=== PATIENT | female | born 1960 | race Two or more races ===

== ENCOUNTER 2019-11-11 12:42 | Inpatient (IN) | payer BC, OTHER ==
[~2019-11-11] VITALS: Ht 152.4 cm; Wt 49.0 kg
--- NOTE | 2019-11-11 12:50 | NUR ---
"Dizzy on/off x3days woke up this am around 7am with blurred vision even with contacts usually I can see. R arm and face started feeling numb 11am" pt awake, alert, -sob, nad noted, vss, pending md forte
[2019-11-11 13:49] LABS: BASOPHILS % (AUTO) 0.3 % (0.0-2.0); EOSINOPHILS % (AUTO) 0.5 % (0.0-6.0); HEMATOCRIT 38 % (33-45); HEMOGLOBIN 12.7 g/dL (11.5-14.8); LYMPHOCYTES # (AUTO) 1.6 /CMM (0.8-4.8); LYMPHOCYTES % (AUTO) 31.8 % (20.0-44.0); MEAN CORPUSCULAR HGB CONC 33 g/dl (31.0-36.0); MEAN CORPUSCULAR VOLUME 93 fL (82-100); MONOCYTES # (AUTO) 0.4 /CMM (0.1-1.30); MONOCYTES % (AUTO) 7.4 % (2.0-12.0); PLATELET COUNT (AUTO) 258 /CMM (150-450); WHITE BLOOD COUNT (AUTO) 4.9 K/uL (4.3-11.0)
[2019-11-11 14:04] LABS: CALCIUM, SERUM 9.1 mg/dL (8.5-10.1); CARBON DIOXIDE 29 mmol/L (21-32); CHLORIDE 108 mmol/L (98-107); CREATININE 0.9 mg/dL (0.6-1.3); GLUCOSE 99 mg/dL (74-106); POTASSIUM 3.9 mmol/L (3.5-5.1); SODIUM SERUM 143 mmol/L (136-145); UREA NITROGEN, BLOOD 16 mg/dL (7-18)
[2019-11-11 14:09] LABS: ALANINE AMINOTRANSFERASE 24 U/L (12-78); ALKALINE PHOSPHATASE 77 U/L (46-116); ASPARTATE AMINOTRANSFERASE 19 U/L (15-37); BILIRUBIN,DIRECT 0.1 mg/dL (0.0-0.2); BILIRUBIN,TOTAL 0.3 mg/dL (0.2-1.0); TOTAL PROTEIN, SERUM 7.8 g/dL (6.4-8.2)
[2019-11-11] MEDS: ASPIRIN 325 MG TABLET PO ONE ×2 (15:00→15:04)
[2019-11-11] MEDS ORDERED: IOHEXOL-350 100 ML VIAL IV ONE (15:01)
[2019-11-11] MEDS ORDERED: CT SWABBABLE VALVE TRANS SET 1 EA INFUS.SET MC ONE (15:02)
[2019-11-11] MEDS ORDERED: IV NS 0.9% 250 ML IV ONE (15:02)
--- NOTE | 2019-11-11 15:40 | NUR ---
CALLED NURSING SUP FOR TELE BED.
--- NOTE | 2019-11-11 15:42 | NUR ---
CALLED [facility] D[facility]Y [facility].
[2019-11-11] MEDS ORDERED: ASPIRIN 325 MG TABLET ONE (16:51)
--- NOTE | 2019-11-11 16:55 | NUR ---
NURSING SUP GAVE TELE BED 118-2.
--- NOTE | 2019-11-11 17:07 | NUR ---
REPORT GIVEN TO KAREN JOE FOR RAMYA PT WILL BE TRANSPORTED TO 1ST FLOOR
[2019-11-11 17:09] LABS: CALCIUM, SERUM 9.1 mg/dL (8.5-10.1); CREATININE 0.7 mg/dL (0.6-1.3); POTASSIUM 4.1 mmol/L (3.5-5.1)
[2019-11-11 17:14] LABS: ALBUMIN 3.9 g/dL (3.4-5.0); BILIRUBIN,TOTAL 0.5 mg/dL (0.2-1.0); TOTAL PROTEIN, SERUM 7.6 g/dL (6.4-8.2)
[2019-11-11 17:30] VITALS: BP 128/75
--- NOTE | 2019-11-11 17:30 | NUR ---
CITY LETTER CARRIER NOTE: PATIENT ARRIVED IN UNIT VIA GURNEY ACCOMPANIED BY STAFF FROM ER. PATIENT IN ABLE TO WALK INDEPENDENTLY, NORMAL GAIT NOTED. ON CARDIAC MONITORING WITH SINUS RHYTHM NOTED. PATIENT IS ABLE TO TOLERATE ROOM AIR WELL, WITH SATURATION >92%. NO DISTRESS NOTED, BREATHING EQUAL AND UNLABORED. IV SITE ON R ACG20, SALINE LOCK PATENT, INTACT AND CLEAN. NO PAIN NOTED. PATIENT VERBALIZED IMPROVED DIZZINESS, BLURRED VISION, RIGHT ARM AND FACE NUMBNESS FROM EARLIER. NO CHEST PAIN NOTED, REPORTED. AWAITING ORDERS. WILL CONTINUE TO MONITOR.
--- NOTE | 2019-11-11 17:35 | NUR ---
RN NOTE: PATIENT REFUSED BODY CHECK. STATED THAT SHE IS FREE OF WOUNDS AND SKIN ISSUES.
--- NOTE | 2019-11-11 17:36 | NUR ---
PT TRANSPORTED TO 1ST FLOOR
[2019-11-11] MEDS ORDERED: BLOOD SUGAR DIAGNOSTIC 1 EACH STRIP IN SCH (18:00)
[2019-11-11] MEDS ORDERED: ENOXAPARIN SODIUM 40 MG/0.4 ML DISP.SYRIN SQ SCH (18:00)
[2019-11-11] MEDS: BLOOD SUGAR DIAGNOSTIC 1 EACH STRIP IN SCH ×2 (18:20→21:30)
--- NOTE | 2019-11-11 19:30 | NUR ---
RN CLOSING NOTE: PATIENT IN BED. ALERT, AWAKE AND ORIENTED X4. ABLE TO WALK INDEPENDENTLY, NORMAL GAIT NOTED. ON CARDIAC MONITORING WITH SINUS RHYTHM NOTED. ON ROOM AIR. TOLERATING WELL WITH SATURATION >92%. NO DISTRESS NOTED, BREATHING EQUAL AND UNLABORED. IV SITE ON R AC G20, SALINE LOCK PATENT, INTACT AND CLEAN. NO PAIN NOTED. PATIENT PASSED BEDSIDE SWALLOW EVALUATION DONE. NO PAIN NOR DISCOMFORT NOTED OR REPORTED. NEUROLOGICAL CHECK DONE WITH NORMAL RESULTS. MEDICATIONS DUE GIVEN. CALL LIGHT IN REACH, SIDE RAILS UP X2. BED LOCKED, LOW AND AT SEMI-MARTI'S POSITION. ENDORSED TO LABEL FOLDER FOR RAMYA.
[2019-11-11 20:00] VITALS: BP 98/51
--- NOTE | 2019-11-11 20:00 | NUR ---
WOOD ROUTER HAND NOTES RECEIVED PATIENT AWAKE IN BED WITH NO DISTRESS NOTED. CALL LIGHT WITHIN REACH. NO C/O PAIN OR DISCOMFORT. PERIPHERAL LINE INTACT AND PATENT. BED IN LOW LOCK SETTING WITH BED ALARM ON AND FUNCTIONING PROPERLY. ALL BELONGINGS KEPT NEAR BEDSIDE. WILL CONTINUE TO MONITOR.
[2019-11-11] MEDS ORDERED: SIMVASTATIN 10 MG TABLET PO SCH (22:00)
[2019-11-12 00:56] VITALS: BP 87/56
[2019-11-12 04:00] VITALS: BP 97/52
[2019-11-12] MEDS: BLOOD SUGAR DIAGNOSTIC 1 EACH STRIP IN SCH ×3 (06:31→17:26)
--- NOTE | 2019-11-12 06:47 | NUR ---
LACE MACHINE OPERATOR NOTES PATIENT AWAKE IN BED WITH NO DISTRESS NOTED. CALL LIGHT WITHIN REACH. ALL DUE MEDS GIVEN ORDERED WITH NO ASE. NO C/O PAIN OR DISCOMFORT. URINE SPECIMEN OBTAINED AND AWAITING LAB SUSPECT ARTIST. BED IN LOW LOCK SETTING. ROOM FREE OF CLUTTER AND BELONGINGS KEPT NEAR BEDSIDE. WILL ENDORSE TO ONCOMING SHIFT.
--- NOTE | 2019-11-12 07:14 | NUR ---
REBAR BENDER OPENING NOTES RECEIVED PATIENT AWAKE IN BED IN NO ACUTE SIGNS OF DISTRESS. A/O X4. ABLE TO MAKE NEEDS KNOWN, VERBALIZED THAT SHE'S MUCH BETTER THAN YESTERDAY, DENIES PAIN OR ANY DISCOMFORTS AT THIS TIME. ON ROOM AIR, BREATHING EVEN AND UNLABORED. TELEMONITORING SHOWS SR WITH HR ON THE 60'S, NO C/O OF CARDIAC DISTRESS VOICED. IV ACCESS ON RAC G #20 INTACT AND PATENT. BED IN LOW LOCKED SETTING WITH SR UP X2. CALL LIGHT WITHIN REACH. WILL CONTINUE TO MONITOR.
[2019-11-12 07:19] LABS: BASOPHILS % (AUTO) 0.4 % (0.0-2.0); EOSINOPHILS % (AUTO) 0.9 % (0.0-6.0); HEMATOCRIT 39 % (33-45); HEMOGLOBIN 12.6 g/dL (11.5-14.8); LYMPHOCYTES # (AUTO) 1.8 /CMM (0.8-4.8); LYMPHOCYTES % (AUTO) 43.2 % (20.0-44.0); MEAN CORPUSCULAR HGB CONC 33 g/dl (31.0-36.0); MEAN CORPUSCULAR VOLUME 94 fL (82-100); MONOCYTES # (AUTO) 0.4 /CMM (0.1-1.30); MONOCYTES % (AUTO) 8.9 % (2.0-12.0); NEUTROPHILS % (AUTO) 46.6 % (43.0-81.0); PLATELET COUNT (AUTO) 261 /CMM (150-450); RED BLOOD CELL COUNT(AUTO) 4.12 MIL/uL (4.0-5.2); WHITE BLOOD COUNT (AUTO) 4.2 K/uL (4.3-11.0)
[2019-11-12 07:53] LABS: ALBUMIN 3.7 g/dL (3.4-5.0); BILIRUBIN,TOTAL 0.4 mg/dL (0.2-1.0); CALCIUM, SERUM 8.9 mg/dL (8.5-10.1); CREATININE 0.7 mg/dL (0.6-1.3); MAGNESIUM 1.9 mg/dL (1.8-2.4); PHOSPHORUS 3.8 mg/dL (2.5-4.9); POTASSIUM 4.1 mmol/L (3.5-5.1); TOTAL PROTEIN, SERUM 7.3 g/dL (6.4-8.2)
[2019-11-12 08:00] VITALS: BP 100/60
[2019-11-12 08:15] VITALS: BP 100/60
[2019-11-12] MEDS: ASPIRIN EC 325 MG TABLET.DR PO SCH ×2 (08:25→08:30)
[2019-11-12 12:00] VITALS: BP 100/65
--- NOTE | 2019-11-12 14:17 | NUR ---
TEXTED DR. NOLAND FOR MRI APPROVAL.
--- NOTE | 2019-11-12 15:18 | NUR ---
RN NOTES PT PICKED UP BY [facility] VIA WHEELCHAIR FOR MRI OF BRAIN W/O CONTRAST.
[2019-11-12 16:00] VITALS: BP 115/75
--- NOTE | 2019-11-12 18:53 | NUR ---
ENVIRONMENTAL MANAGER CLOSING NOTES PATIENT IN BED WATCHING TV AT THIS TIME. A/O X4. ABLE TO MAKE NEEDS KNOWN. SEEN AND EVALUATED BY DR BERNARD AND CLEARED HER FOR D/C HOME. ON ROOM AIR, BREATHING EVEN AND UNLABORED. TELE-MONITORING SHOWS SR WITH HR OF 70'S, NO C/O CARDIAC DISTRESS VOICED DURING THE DAY. IV SL ON RAC G#20 INTACT, PATENT AND FLUSHES WELL. ALL NEEDS AND CARE ATTENDED WELL. BED KEPT IN LOW LOCKED POSITION WITH SR UP X2. CALL LIGHT WITHIN REACH. PT FOR DISCHARGE HOME TO NIGHT. WILL ENDORSE TO INTERIOR SURFACE INSULATION WORKER NURSE.
--- NOTE | 2019-11-12 19:18 | NUR ---
REMOVED IV FROM RIGHT AC, DRESSING APPLIED. ALL DISCHARGE PAPERWORK EXPLAINED AND REVIEWED WITH PT, BELONGINGS ACCOUNTED FOR. PT LEFT UNIT IN STABLE CONDITION
== END 2019-11-12 20:25 | disposition home or self-care (01) | DRG 74 ==
LOC: ER 12:45 → TELE1 17:02
PROVIDERS: ADMIT Registered Nurse; ATTEND Registered Nurse
DX: M54.12 Radiculopathy, cervical region (principal); R42 Dizziness and giddiness; H53.8 Other visual disturbances; R20.0 Anesthesia of skin
CPT/HCPCS: 36415; 70450-TC; 70496-TC; 70498-TC; 70551-TC; 80048-TC; 80053-TC; 80061-TC; 80076-TC; 82962-TC; 83735-TC; 84100-TC; 84484-TC; 85025-TC; 87081-TC; 93880-TC; 97116-TC; 97530-TC; G0378; J1650; J7050; Q9967